=== PATIENT | male | born 2000 | race Hispanic/Latino ===

== ENCOUNTER 2025-02-23 18:04 | Emergency (ER) | payer OTHER ==
[~2025-02-23] VITALS: Ht 162.6 cm; Wt 68.0 kg
[2025-02-23 18:18] VITALS: BP 135/76; PULSE 77; RESP 16; TEMP 98.5; O2SAT 97
[2025-02-23 18:48] LABS: +ADD MANUAL DIFF(NO CHRG) NO; BASOPHIL % 0.2 % (0.2-1.2); EOSINOPHIL # 0.1 10^3/uL (0.0-0.2); EOSINOPHIL % 1.4 % (0.0-5.0); HEMATOCRIT(ML) 45.3 % (37.0-53.0); HEMOGLOBIN 15.8 g/dL (13.9-16.3); LYMPHOCYTES # 3.02 10^3/uL1 (1.0-4.8); LYMPHOCYTES % 31.5 % (24.0-44.0); MEAN CORP HGB 29.4 pg (26-34); MEAN CORP HGB CONCENTRATION 34.9 g/dL (33-36.5); MEAN CORP VOLUME 84.4 fL (78-100); MONOCYTES # 0.8 10^3/uL (0.3-0.8); MONOCYTES % 8.8 % (5.0-12.0); NEUTROPHIL # 5.6 10^3/uL (1.8-7.7); NEUTROPHILS % 57.9 % (41.0-85.0); PLATELET COUNT 295 10^3/uL (150-400); RED BLOOD CELL 5.37 10^6/uL (4.50-5.90); RED CELL DISTRIBUTION WIDTH 11.4 % (11.5-14.5); WHITE BLOOD CELL 9.6 10^3/uL (4.5-11.0)
[2025-02-23 19:03] LABS: ALBUMIN(ML) 4.7 g/dL (3.4-5.0); ALBUMIN/GLOBULIN RATIO 1.468; ANION GAP 12.6; BUN/CREATININE RATIO 12.8 (10.0-20.0); CALCIUM 9.2 mg/dL (8.4-10.5); CARBON DIOXIDE 28.8 mmol/L (20.0-32); CREATININE SERUM 1.25 mg/dL (0.59-1.40); EST GFR, NON-AA 72.2 (>/=60); POTASSIUM 4.4 mmol/L (3.6-5.2)
[2025-02-23] MEDS ORDERED: DOXYCYCLINE MONOHYDRATE ONE (19:22)
[2025-02-23] MEDS ORDERED: DOXY100T PO (19:22)
[2025-02-23 19:25] VITALS: BP 128/72; PULSE 77; RESP 16; TEMP 98.5; O2SAT 97
[2025-02-23] MEDS: DOXYCYCLINE MONOHYDRATE PO STA (19:27)
== END 2025-02-23 19:25 | disposition home or self-care (01) ==
LOC: ER 18:04
DX: S30.860A Insect bite (nonvenomous) of lower back and pelvis, initial encounter (principal); W57.XXXA Bitten or stung by nonvenomous insect and other nonvenomous arthropods, initial encounter; Y99.0 Civilian activity done for income or pay
CPT/HCPCS: 36415; 80048; 80053; 85025; 99283